=== PATIENT | male | born 1970 | race Caucasian/White ===

== ENCOUNTER → 2018-06-02 | Outpatient (CLI) | payer BC ==
--- NOTE | 2018-06-02 12:02 | CONS ---
CONSULTATION DATE OF SERVICE: 06/02/2018 This 48-year-old gentleman who has been evaluated in the sleep center for possible obstructive sleep apnea-hypopnea syndrome. HISTORY OF PRESENT ILLNESS/SLEEP-WAKE EVALUATION: Patient usual sleep schedule from 10 to 11 p.m. to 7 a.m. basically 7 days a week. No problems with falling asleep. No TV in bedroom. Usually sleeps in the back position and according to his , he snores and he wakes up with nocturia. He worries about his sleep, usually does not take any naps. [place] Sleepiness Scale increased to 10. He is grinding his teeth, has episodes of sweating. PAST MEDICAL HISTORY: Hypertension, back problems, sciatic nerve problems on the left side, episodes of headaches, history of hayfever and allergic asthma. PAST SURGICAL HISTORY: Injection to the back for sciatic nerve problems. SOCIAL HISTORY: Negative for smoking. Alcohol consumption occasional. MEDICATION: Medications for the blood pressure, patient does not remember the name, takes it once a day in the morning; albuterol on p.r.n. basis for asthma. FAMILY HISTORY: Patient was adopted, family history is unknown. REVIEW OF SYSTEMS: Awakenings from sleep. No snoring. Sometimes tiredness and sleepiness during the day. PHYSICAL EXAMINATION: During physical exam, gentleman without distress. VITAL SIGNS: BP 162/96, 91, HR 60, RR 16, height 5 feet 10 inches, weight 238 pounds, body mass index 34.1. HEENT: PERRLA, EOMI. Oropharynx low position of soft palate. Mallampati 3-4. Wide pillars. Significant restriction of nasal breathing. Wide neck is 17-1/2 inches in circumference. NECK: Supple, no JVD. Thyroid is not palpable. LUNGS: Clear to percussion and to auscultation. Good air exchange. No wheezing or rhonchi. HEART: S1, S2 regular. No murmurs, gallops, or rubs. ABDOMEN: Slightly obese. EXTREMITIES: No clubbing or cyanosis. INDUSTRIAL MACHINE ASSEMBLER: Awake, alert, and oriented X3. Cranial nerves 2 to 7 intact. There is no fasciculation or atrophy. noted. No focal deficits observed. IMPRESSION: 1. Snoring, small oropharyngeal air space, restriction of nasal breathing, wide neck, episodes of sleepiness, obstructive sleep apnea-hypopnea syndrome. 2. Mild obesity, body mass index 34.1. 3. Hypertension. 4. History of sciatic nerve problems on the left side. 5. Back problems, status post injection of corticosteroids to the back. 6. Episodes of headaches. 7. History of asthma. 8. History of hayfever. PLAN: 1. Home sleep apnea test for checking patient's breathing during sleep. 2. CPAP/BiPAP titration if sleep study confirms obstructive sleep apnea-hypopnea syndrome. 3. Preferable position during sleep on the side. 4. No driving if patient feels any sleepiness. 5. I will see patient for follow up visit to explain results of testing and following plan. Thank you very much for referring this patient for consultation. Sincerely, Atul Strange MD, PhD, FAASM Diplomat of [place] Board of Medical Specialties [place] Board of Internal Medicine Chief Information Officer of [facility] [place] MMODL / MARLENAN: [id number] /
== END | disposition home or self-care (01) ==
LOC: SLEEP 10:15
PROVIDERS: ATTEND Internal Medicine
DX: G47.33 Obstructive sleep apnea (adult) (pediatric) (principal); R35.1 Nocturia; J45.909 Unspecified asthma, uncomplicated; E66.9 Obesity, unspecified; M54.32 Sciatica, left side; I10 Essential (primary) hypertension; R51 Headache; Z68.34 Body mass index [BMI] 34.0-34.9, adult
CPT/HCPCS: 99211

== ENCOUNTER → 2018-10-06 | Outpatient (CLI) | payer BC ==
--- NOTE | 2018-10-06 13:32 | SFUN ---
SLEEP CENTER FOLLOW UP NOTE DATE OF SERVICE: 10/06/2018 This 48-year-old gentleman has been followed in the sleep center for treatment of obstructive sleep apnea-hypopnea syndrome. Recently patient had a home sleep apnea test which showed apnea-hypopnea index 16.8 with oxygen desaturation to 83%. I discussed results of sleep studies with the patient in detail. He was started on treatment without auto Pap. Today is his first visit after he was treated. The patient is able to use his CPAP equipment every night without significant problems. According to his , he sleeps better. [place] Sleepiness Scale today is 4. I checked his CPAP unit, range of the pressure 5 to 15. Patient using it 100% of the time more than 4 hours with average usage 7 hours. Pressure is in the range of 5 to 15 with average pressure 13.7, leak 22 L/minute, which is borderline. Apnea-hypopnea index only 1.0, which is absolutely normal. MEDICATIONS: Lisinopril. PHYSICAL EXAMINATION: During physical examination, patient in no distress. VITAL SIGNS: BP 131/85, HR 66, RR 16, weight 237.0, temperature 97.4, oxygen saturation at room air 98% . HEENT: PERRLA, EOMI. Oropharynx low position of soft palate. Mallampati 4. NECK: Supple, no JVD. Thyroid is not palpable. LUNGS; clear to percussion and to auscultation. Good air exchange. No wheezing or rhonchi. HEART: S1, S2 regular. No murmurs, gallops, or rubs. ABDOMEN: Soft and nontender. Bowel sounds are present. No organomegaly appreciated. EXTREMITIES: No clubbing or cyanosis. MICROPALEONTOLOGIST: Awake, alert, and oriented X3. Cranial nerves 2 to 7 intact. There is no fasciculation or atrophy. noted. No focal deficits observed. IMPRESSION: 1. Moderate obstructive sleep apnea-hypopnea syndrome on full control with CPAP. The patient demonstrated 100% compliance with treatment benefitting from treatment. 2. Hypertension. 3. Mild obesity. 4. Episodes of headaches. 5. History of asthma. 6. History of hay fever. 7. History of sciatic nerve problems on the left side. 8. Back problems. 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 PLAN: 1. Patient will continue to use CPAP equipment every night for the whole night. 2. I will maintain all necessary CPAP prescription. 3. Watching and losing weight. 4. Sleep hygiene with regular time in bed for 7-1/2 hours at least. 5. No driving if feeling any sleepiness. Thank you very much for allowing me to participate in management of your patient. Sincerely, Atul Strange MD, PhD, FAASM Diplomat of [place] Board of Medical Specialties [place] Board of Internal Medicine Instant Powder Supervisor of [facility] [place] MMODL / IJN: [id number] /
== END ==
LOC: SLEEP 11:32
PROVIDERS: ATTEND Internal Medicine
DX: G47.33 Obstructive sleep apnea (adult) (pediatric) (principal); I10 Essential (primary) hypertension; E66.9 Obesity, unspecified; R51 Headache; J45.909 Unspecified asthma, uncomplicated; R29.898 Other symptoms and signs involving the musculoskeletal system; Z99.89 Dependence on other enabling machines and devices; Z79.899 Other long term (current) drug therapy

== ENCOUNTER → 2020-04-25 | Outpatient (CLI) | payer BC ==
--- NOTE | 2020-04-25 15:15 | SFUN ---
SLEEP CENTER FOLLOW UP NOTE DATE OF SERVICE: 04/25/2020 This 50-year-old gentleman has been followed in Sleep Center for treatment of obstructive sleep apnea-hypopnea syndrome. The patient continues to use his CPAP equipment every night, although he does not like his full-face mask. [place] Sleepiness Scale today is 6. I checked his CPAP unit. It is in automatic regimen with a pressure of 5 to 15 cm of water. Average pressure is 12 cm of water. Usage is 30/30 nights. Average usage is 7.8 hours per night. Leak is 35 L/minute, which is slightly high. Apnea-hypopnea index is 1.4, which is totally normal. MEDICATIONS: Losartan 50 mg once a day. PHYSICAL EXAMINATION: GENERAL: A pleasant gentleman without distress. VITAL SIGNS: BP 136/84, HR 70, RR 16, height 5 feet 10-1/2 inches, weight 248, BMI 35, temperature 97, oxygen saturation at room air 97%. HEENT: PERRLA, EOMI. Evaluation of oropharynx showed tongue protrudes midline. Extremely low position of soft palate. Mallampati IV. NECK: Supple. No JVD. Thyroid is not palpable. LUNGS: Clear to percussion and to auscultation. Good air exchange. No wheezing or rhonchi. HEART: S1, S2 regular. No murmurs, gallops or rubs. ABDOMEN: Slightly obese. EXTREMITIES: No clubbing or cyanosis. SEAWEED HARVESTER: Awake, alert, and oriented X3. Cranial nerves 2 to 7 intact. There is no fasciculation or atrophy. noted. No focal deficits observed. IMPRESSION: 1. Moderate obstructive sleep apnea-hypopnea syndrome. The patient demonstrated 100% compliance with treatment, benefitting from treatment. 2. Hypertension. 3. Obesity. 4. History of headaches, improved on treatment with CPAP. 5. History of asthma. 6. History of hay fever. 7. History of sciatic nerve problems on the left side in the past. 8. Back problems. 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 PLAN: 1. Patient will continue to use PAP equipment every night for the whole night. 2. Sleep hygiene with regular time in bed for at least 7-1/2 to 8 hours. 3. Precautions related to driving. No driving if feeling sleepiness. 4. I will maintain all necessary prescription for PAP supplies including mask, tube, filters. 5. Watching weight. 6. We may consider trying a different of style of mask, include nasal pillow mask with a chin strap. 7. Follow-up visit in 6 months or earlier if patient has any problems. Thank you very much for allowing me to participate in the management of your patient. Sincerely, Atul Strange MD, PhD, FAASM Diplomat of [place] Board of Medical Specialties [place] Board of Internal Medicine Welding Machine Operator Gas of [facility] [place] MMODL / MARLENAN: [id number] /
== END ==
LOC: SLEEP 13:36
PROVIDERS: ATTEND Internal Medicine
DX: G47.33 Obstructive sleep apnea (adult) (pediatric) (principal); I10 Essential (primary) hypertension; E66.9 Obesity, unspecified; J45.909 Unspecified asthma, uncomplicated; Z87.39 Personal history of other diseases of the musculoskeletal system and connective tissue; Z87.09 Personal history of other diseases of the respiratory system; Z79.899 Other long term (current) drug therapy

== ENCOUNTER → 2021-02-13 | Outpatient (CLI) | payer BC ==
--- NOTE | 2021-02-14 06:46 | SFUN ---
SLEEP CENTER FOLLOW UP NOTE DATE OF SERVICE: 02/13/2021 50-year-old gentleman has been followed in Sleep Center for treatment of obstructive sleep apnea-hypopnea syndrome. Patient continued to use his CPAP equipment every night, getting his CPAP supplies in time and changing his air filter and all necessary parts of the machine. [place] Sleepiness Scale today is 5, which is in normal range. I checked his CPAP unit. Range of the pressure 5-15, average pressure 11.5 cm of water. Usage is 100% of nights, 7.1 hours per night average which is great compliance. Leak is 35 L/minute which is slightly high. At the same time, apnea-hypopnea index is 1.0, which is absolutely normal. MEDICATIONS: Losartan 50 mg once a day. PHYSICAL EXAMINATION: GENERAL: Patient in no distress. BP 142/93 HR 78, RR 16, height 5 feet 11.5 inches, weight 249.8 pounds, body mass index 34.2, temperature 97.3, oxygen saturation at room air 98%. Oropharynx: Extremely low position of soft palate, Mallampati 4. NECK: Supple, no JVD. Thyroid is not palpable. LUNGS: Clear to percussion and to auscultation. Good air exchange. No wheezing or rhonchi. HEART: S1, S2 regular. No murmurs, gallops, or rubs. ABDOMEN: Obese. Soft and nontender. Bowel sounds are present. No organomegaly appreciated. EXTREMITIES: No clubbing or cyanosis. FLORAL ASSISTANT: Awake, alert, and oriented X3. Cranial nerves 2 to 7 intact. There is no fasciculation or atrophy. noted. No focal deficits observed. IMPRESSION: 1. Moderate obstructive sleep apnea-hypopnea syndrome. Patient demonstrated great compliance with treatment. Normal respiration on CPAP. Leak from the mask slightly high, but again respiration is normal. 2. Hypertension. 3. Obesity. 4. Episodes of headaches less than before while on CPAP but still sometimes has episodes of headaches. 5. History of asthma. 6. History of hayfever. 7. History of sciatic nerve problems from the left side in the past. 8. Back problems. 9. 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 PLAN: 1. Patient will continue to use PAP equipment every night for the whole night. 2. Sleep hygiene with regular time in bed for at least 7-1/2 to 8 hours. 3. Precautions related to driving. No driving if feeling sleepiness. 4. I will maintain all necessary prescription for PAP supplies including mask, tube, filters. 5. Watching weight. 6. Follow-up visit in 6 months or earlier if patient has any problems. Thank you very much for allowing me to participate in management of your patient. Sincerely, Atul Strange MD, PhD, FAASM Diplomat of [place] Board of Medical Specialties Sleep Medicine Board of [place] Board of Internal Medicine Public Policy Mediator of [facility] [place] MMODL / MARLENAN: [id number] /
== END ==
LOC: SLEEP 10:25
PROVIDERS: ATTEND Internal Medicine
DX: G47.33 Obstructive sleep apnea (adult) (pediatric) (principal); I10 Essential (primary) hypertension; E66.9 Obesity, unspecified; J45.909 Unspecified asthma, uncomplicated; M54.9 Dorsalgia, unspecified; Z68.34 Body mass index [BMI] 34.0-34.9, adult; Z86.69 Personal history of other diseases of the nervous system and sense organs; Z87.09 Personal history of other diseases of the respiratory system; Z79.899 Other long term (current) drug therapy

== ENCOUNTER → 2022-02-12 | Outpatient (CLI) | payer BC ==
--- NOTE | 2022-02-12 11:10 | P.PN ---
Subjective DATE: 02/12/2022 FOLLOW UP VISIT. Patient with obstructive sleep apnea hypopnea syndrome return to sleep center for follow-up visit. Information from previous visit have been reviewed. Patient is using PAP equipment every night for the whole night, getting PAP supplies in time. The patient does not have significant problems with the mask, PAP unit and humidification. [place] sleepiness scale is 4, which is normal. I checked information from PAP unit. PAP unit pressure 5-15, average 11.3 cm H2O. Usage is 100 % for more then 4 hours, average 7 hours per night. Leak is slightly increased to 34.2 l/m, but leak does not create any problems for the patient with relationship to his sleep. Apnea Hypopnea Index is 0.9, which is normal. MEDICATIONS:1. Losartan 50 mg once a day During physical exam: GENERAL: A pleasant patient without any distress. VITAL SIGNS: BP 143/87, HR 68, RR 16 , weight 251.0, temperature 97.6, oxygen saturation at room air 97 % . HEENT: PERRLA, EOMI.low position of soft palate, Mallapati 4 . NECK: Supple. No JVD. LUNGS: Clear to percussion and to auscultation. Good air exchange. No wheezing or rhonchi. HEART: S1, S2 regular. ABDOMEN: Soft and nontender. Slightly obese EXTREMITIES: No clubbing or cyanosis. SHEAR GRINDER OPERATOR: Awake, alert, and oriented x3. No focal deficit. Impressions: 1. Obstructive sleep apnea-hypopnea syndrome. Patient demonstrated great compliance with treatment, benefiting from treatment. 2. Hypertension. 3. Obesity. 4. History of asthma. 5. History of hayfever. 6. History of back problems. 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 Plan: 1. Continue using PAP equipment every night for the whole night. 2. To change air filter at least 1-2 times per month. 3. PAP unit should stay lower then position of the head. 4. Advised patient to remove all remaining water from humidifier canister daily and make it dry after each usage. Refill canister with fresh distilled water before each usage. 5. Sleep hygiene with regular time in bed for at least 8 hours. 6. Precautions related to driving. No driving if feel any sleepiness. 7. I will maintain prescription for PAP supplies including mask, tube, filters. 8. Follow up visit in 6 months or earlier if patient has any problems. 9. Watching and losing weight. Thank you very much for allowing me to participate in the management of your patient. Atul Strange MD, PhD, FAASM. Diplomat of [place] Board of Sleep Medicine, Sleep Medicine Board by [place] Board of Internal Medicine Rock Drill Operator of [facility] [place]
== END ==
LOC: SLEEP 09:52
PROVIDERS: ATTEND Internal Medicine
DX: G47.33 Obstructive sleep apnea (adult) (pediatric) (principal); I10 Essential (primary) hypertension; E66.9 Obesity, unspecified; Z87.09 Personal history of other diseases of the respiratory system; Z87.39 Personal history of other diseases of the musculoskeletal system and connective tissue; Z99.89 Dependence on other enabling machines and devices
CPT/HCPCS: 99212

== ENCOUNTER → 2023-02-11 | Outpatient (CLI) | payer BC ==
--- NOTE | 2023-02-11 11:25 | P.PN ---
Subjective DATE: 02/11/2023 FOLLOW UP VISIT. Patient with obstructive sleep apnea hypopnea syndrome return to sleep center for follow-up visit. Information from previous visit have been reviewed. Patient is using PAP equipment every night for the whole night, getting PAP supplies in time. The patient does not have significant problems with the mask, PAP unit and humidification. [place] sleepiness scale is 5, which is normal. I checked information from PAP unit. PAP unit pressure 5-15, average 12.7 cm H2O. Usage is 100% and 93 % for more then 4 hours, average 6.3 hours per night. Leak is 31.8 l/m, which is in increased range. Apnea Hypopnea Index is 0.6, which is perfect. MEDICATIONS:1. Losartan 50 mg once a day During physical exam: GENERAL: A pleasant patient without any distress. VITAL SIGNS: BP 146/92, HR 71, RR 16, weight 253.8, temperature 97.7, oxygen saturation at room air 99 % . HEENT: PERRLA, EOMI.low position of soft palate, Mallapati 4 . NECK: Supple. No JVD. LUNGS: Clear to percussion and to auscultation. Good air exchange. No wheezing or rhonchi. HEART: S1, S2 regular. ABDOMEN: Soft and nontender.[] EXTREMITIES: No clubbing or cyanosis. SPECIAL LOAN OFFICER: Awake, alert, and oriented x3. No focal deficit. Impressions: 1. Obstructive sleep apnea-hypopnea syndrome. Patient demonstrated great compliance with treatment, benefiting from treatment. 2. Hypertension. 3. Obesity. 4. History of asthma. 5. History of back problems. 6. History of hayfever. 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 Plan: 1. Continue using PAP equipment every night for the whole night. 2. To change air filter at least 1-2 times per month. 3. PAP unit should stay lower then position of the head. 4. Advised patient to remove all remaining water from humidifier canister daily and make it dry after each usage. Refill canister with fresh distilled water before each usage. 5. Sleep hygiene with regular time in bed for at least 8 hours. 6. Precautions related to driving. No driving if feel any sleepiness. 7. I will maintain prescription for PAP supplies including mask, tube, filters. 8. Watching and losing weight. 9. Follow up visit in 6 months or earlier if patient has any problems. Thank you very much for allowing me to participate in the management of your patient. Atul Strange MD, PhD, FAASM. Diplomat of [place] Board of Sleep Medicine, Sleep Medicine Board by [place] Board of Internal Medicine Lay Midwife of [facility] [place]
== END ==
LOC: 3 N SLEEP 10:25
PROVIDERS: ATTEND Internal Medicine
DX: G47.33 Obstructive sleep apnea (adult) (pediatric) (principal); I10 Essential (primary) hypertension; E66.9 Obesity, unspecified; J45.909 Unspecified asthma, uncomplicated; Z79.899 Other long term (current) drug therapy; Z99.89 Dependence on other enabling machines and devices; Z87.39 Personal history of other diseases of the musculoskeletal system and connective tissue; Z86.19 Personal history of other infectious and parasitic diseases
CPT/HCPCS: 99212

== ENCOUNTER → 2024-02-17 | Outpatient (CLI) | payer BC ==
[2024-02-17 11:21] VITALS: BP 145/88; PULSE 68; RESP 16; TEMP 97.7
--- NOTE | 2024-02-17 11:37 | P.PROGSL ---
Subjective DATE: 02/17/2024 FOLLOW UP VISIT. Patient with obstructive sleep apnea hypopnea syndrome return to sleep center for follow-up visit. Information from previous visit have been reviewed. Patient is using PAP equipment every night for the whole night, getting PAP supplies in time. The patient does not have significant problems with the mask, PAP unit and humidification. [place] sleepiness scale is 5, which is normal. I checked information from PAP unit. PAP unit pressure 5-15, average 12 cm H2O. Usage is 100% for more then 4 hours, average 6.8 hours per night. Leak is increased to 35 l/m. Apnea Hypopnea Index is 0.7, which is normal. MEDICATIONS have been reviewed, please see below. During physical exam: GENERAL: A pleasant patient without any distress. VITAL SIGNS: Please see below, weight is 155 lbs. HEENT: PERRLA, EOMI.low position of soft palate, Mallapati 4 . NECK: Supple. No JVD. LUNGS: Clear to percussion and to auscultation. Good air exchange. No wheezing or rhonchi. HEART: S1, S2 regular. ABDOMEN: Soft and nontender.[] EXTREMITIES: No clubbing or cyanosis. DRY CHAIN OFFBEARER: Awake, alert, and oriented x3. No focal deficit. Impressions: 1. Obstructive sleep apnea-hypopnea syndrome. Patient demonstrated great compliance with treatment, benefiting from treatment. 2. Mild obesity, BMI 36.5. 3. Hypertension. 4. History of asthma. 5. History of back problems. 6. History of hayfever. 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 Plan: 1. Continue using PAP equipment every night for the whole night. 2. Sleep hygiene with regular time in bed for at least 7.5-8 hours 3. PAP unit should stay lower then position of the head. 4. Advised patient to remove all remaining water from humidifier canister daily and make it dry after each usage. Refill canister with fresh distilled water before each usage. 5. Watching and losing weight. 6. Precautions related to driving. No driving if feel any sleepiness. 7. I will maintain prescription for PAP supplies including mask, tube, filters. 8. Follow up visit in 8 months or earlier if patient has any problems. Thank you very much for allowing me to participate in the management of your patient. Atul Strange MD, PhD, FAASM. Diplomat of [place] Board of Sleep Medicine, Sleep Medicine Board by [place] Board of Internal Medicine Satellite Installer of [facility] [place] Objective - Vital Signs Vital Signs: Vital Signs Temp 97.7 F 02/17/24 11:20 Pulse 68 02/17/24 11:20 Resp 16 02/17/24 11:20 BP 145/88 02/17/24 11:20 Pulse Ox 97 02/17/24 11:20 FiO2 Intake & Output 02/16/24 02/17/24 02/17/24 18:59 06:59 18:59 Weight 115.666 kg Home Medications: Home Medications Medication Instructions Recorded Confirmed Type Losartan [Cozaar] 50 mg PO DAILY 02/17/24 02/17/24 History
== END ==
LOC: 3 N SLEEP 10:41
PROVIDERS: ATTEND Internal Medicine
DX: G47.33 Obstructive sleep apnea (adult) (pediatric) (principal); E66.9 Obesity, unspecified; I10 Essential (primary) hypertension; J45.909 Unspecified asthma, uncomplicated; Z68.36 Body mass index [BMI] 36.0-36.9, adult; Z87.39 Personal history of other diseases of the musculoskeletal system and connective tissue; Z91.09 Other allergy status, other than to drugs and biological substances
CPT/HCPCS: 99212